=== PATIENT | male | born 1985 | race Caucasian/White ===

== ENCOUNTER 2021-05-29 05:33 | Outpatient (CLI) | payer OTHER ==
[~2021-05-29] VITALS: Ht 182.9 cm; Wt 150.0 kg
[2021-05-29] MEDS ORDERED: MULT-1136 PO (10:48)
[2021-05-29] MEDS ORDERED: PRAV20TA3 PO (10:48)
[2021-05-29] MEDS ORDERED: LISI1TAB29 PO (10:48)
== END 2021-05-29 11:21 | disposition home or self-care (01) ==
LOC: PREOP 05:33
PROVIDERS: ATTEND Surgery
DX: Z01.818 Encounter for other preprocedural examination (principal)

== ENCOUNTER 2021-06-05 10:57 | Day surgery (SDC) | payer OTHER ==
--- NOTE | 2021-05-21 10:07 | HISTORY AND PHYSICAL ---
DATE OF SERVICE: PROCEDURE DATE: 06/05/2021. ATTENDING PRIMARY CARE PHYSICIAN: Earlene Cardenas MD HISTORY OF PRESENT ILLNESS: The patient is a 35-year-old male who is interested in the laparoscopic gastric sleeve resection and meets the medical criteria for bariatric surgery. He reports that he gained the majority of his adult weight in his mid 20s. He has tried a number of diet, exercise and medications with no success. He has tried diet such as slim for life, ketogenic and Slimfast diet. He reports that he did lose some weight. However, he gained this weight back. He has tried exercising in the past such as weight training as well as walking and working with a strainer tender and reports that he would lose some weight; however, would regain his weight back. He reports he has also tried phentermine for approximately 6 months and did lose some weight, but not a significant amount. His medical comorbidities related to obesity include hypertension and hypercholesterolemia. PAST MEDICAL HISTORY: Hypertension, hypercholesterolemia. PAST SURGICAL HISTORY: Tonsillectomy, vasectomy in 2019. ALLERGIES: No known drug allergies. MEDICATIONS: Lisinopril/hydrochlorothiazide 20/12.5 daily, pravastatin 40 mg daily. SOCIAL HISTORY: Negative for tobacco smoke. Rare for alcohol. FAMILY HISTORY: Father, diabetes, myocardial infarction. Mother, diabetes. Paternal grandfather, myocardial infarction. VITAL SIGNS: Blood pressure is 150/90. Current weight is 358.0 pounds at 6 feet 0 inches with a body mass index of 48.5. REVIEW OF SYSTEMS: This is a well-nourished, obese male in no acute distress. He is not experiencing any shortness of breath or difficulty breathing. No chest pain, palpitations or diaphoresis. No nausea, vomiting. No abdominal pain. No diarrhea or constipation. No red blood per rectum. No dark tarry stools. No fever or chills. No recent inadvertent weight loss. All other review of systems negative. PHYSICAL EXAMINATION: CHEST: Clear. Good breath sounds bilaterally. HEART: Regular, no murmurs. EXTREMITIES: No lower extremity edema. Negative Homans sign. HEENT: No scleral icterus. NECK: No cervical lymphadenopathy. ABDOMEN: Soft, nontender, nondistended. SKIN: Warm, dry and pink. NEUROLOGIC: Awake, alert and oriented x3. ASSESSMENT AND PLAN: A 35-year-old male who is in our surgical weight loss program and is interested in the laparoscopic gastric sleeve resection and does meet the medical criteria for bariatric surgery. His medical comorbidities related to obesity include hypertension and hypercholesterolemia. At this time, we will proceed with the necessary testing and evaluations including one time nutrition and psychology evaluation as well as overnight oximetry test, an upper GI contrast study to check for any hiatal hernia as well as clearance from his primary care physician. Once all of these tests and evaluations are completed, we will then proceed with scheduling him for a laparoscopic gastric sleeve resection. The risks and benefits of the procedure as well as the procedure and home care instructions as well as pre and postoperative diet were explained to the patient. The patient verbalized understanding of instructions and agrees to this plan. Job ID: [id number] DocumentID: [id number] Dictated Date: 05/21/2021 09:45:43 Ct Scan Tech Date: 05/21/2021 10:07:02 Dictated By: MARYANN AUSTIN APRN
[~2021-06-05] VITALS: Ht 182.9 cm; Wt 150.0 kg
[2021-06-05] VITALS (9 sets, daily range): BP systolic 130–167; BP diastolic 81–98
[~2021-06-05 10:57] MED LIST: LISI1TAB29 PO; MULT-1136 PO; PRAV20TA3 PO
--- NOTE | 2021-06-05 11:22 | Progress Note-Pre Operative ---
Pre-Operative Progress Note H&P Reviewed The H&P was reviewed, patient examined and no changes noted. Date Seen by Provider: Jun 05, 2021 Time Seen by Provider: 11:20 Date H&P Reviewed: Jun 05, 2021 Time H&P Reviewed: 11:15 Pre-Operative Diagnosis: Morbid obesity, hypertension, hypercholesterolemia MARYANN AUSTIN APRN Jun 05, 2021 11:22
[2021-06-05] MEDS ORDERED: LISI10TA25 PO (11:24)
--- NOTE | 2021-06-05 11:24 | Discharge Inst-Surgical ---
D/C Lap Instructions-KIDO Reconcile Patient Problems Problems Reviewed?: Yes New, Converted, or Re-Newed RX: RX on Chart Follow Up Appt in 2 weeks Activity as tolerated No driving for 24 hours No driving while on pain medications Incentive Spirometry use every 2 hours while awake Clear liquid diet Symptoms to Report: Fever over 101 degree F, Nausea/Vomiting Infection Signs and Symptoms to report: Increased redness, Foul odor of wound, Increased drainage Bathing instructions: May shower Operative Area Clean/Dry; Keep incision clean/dry If any problems/questions: Contact your physician or go to Emergency Room MARYANN AUSTIN APRN Jun 05, 2021 11:24
[2021-06-05] MEDS ORDERED: LIDOCAINE/EPI 1%-1:200,000 (XYLOCAINE) 30 ML VIAL ONE (11:28)
[2021-06-05] MEDS ORDERED: ceFAZolin 2 GM IV Premixed 50 ML ONE (11:38)
[2021-06-05] MEDS: LACTATED RINGERS 1,000 ML IV PRN ×2 (11:45→14:57)
[2021-06-05 12:16] LABS: BASOPHILS % (AUTO) 0 % (0-10); EOSINOPHILS # (AUTO) 0.1 10^3/uL (0.0-0.3); EOSINOPHILS % (AUTO) 1 % (0-10); HEMATOCRIT 48 % (40-54); HEMOGLOBIN 16.2 g/dL (13.3-17.7); LYMPHOCYTES # (AUTO) 2.4 10^3/uL (1.0-4.0); LYMPHOCYTES % (AUTO) 32 % (12-44); MEAN CORPUSCULAR HEMOGLOBIN 28 pg (25-34); MEAN CORPUSCULAR HGB CONC 34 g/dL (32-36); MEAN CORPUSCULAR VOLUME 84 fL (80-99); MEAN PLATELET VOLUME 10.2 fL (9.0-12.2); MONOCYTES # (AUTO) 0.7 10^3/uL (0.0-1.0); MONOCYTES % (AUTO) 9 % (0-12); NEUTROPHILS # (AUTO) 4.3 10^3/uL (1.8-7.8); NEUTROPHILS % (AUTO) 57 % (42-75); PLATELET COUNT 270 10^3/uL (130-400); WHITE BLOOD COUNT 7.4 10^3/uL (4.3-11.0)
[2021-06-05] MEDS ORDERED: fentaNYL INJ 100 MCG/2 ML AMP ONE ×2 (12:26→13:31)
[2021-06-05] MEDS ORDERED: LIDOCAINE PF 2% 5 ML (XYLOCAINE) VIAL ONE (12:26)
[2021-06-05] MEDS ORDERED: ROCURONIUM 10 MG/ML 5 ML SYRINGE IV ONE ×2 (12:26→13:35)
[2021-06-05] MEDS ORDERED: SEVOFLURANE (ULTANE) 15 ML INHAL SOLN ONE ×2 (12:26→14:12)
[2021-06-05] MEDS ORDERED: proPOfol 200 MG/20 ML (DIPRIVAN) VIAL IV ONE (12:26)
[2021-06-05] MEDS ORDERED: ONDANSETRON 4 MG/2 ML (SDV) Z0FRAN ONE (12:26)
[2021-06-05] MEDS ORDERED: MIDAZOLAM 2 MG/2 ML (VERSED) VIAL ONE (12:27)
[2021-06-05] MEDS ORDERED: ONDANSETRON 4 MG/2 ML (SDV) Z0FRAN IV PRN (12:30)
[2021-06-05] MEDS ORDERED: NALOXONE 0.4 MG/ML 1 ML (NARCAN) VIAL IV PRN (12:30)
[2021-06-05] MEDS ORDERED: LACTATED RINGERS 1,000 ML IV SCH (12:30)
[2021-06-05] MEDS ORDERED: diphenhydrAMINE 50 MG/ML INJ (BENADRYL) IV PRN (12:30)
[2021-06-05] MEDS ORDERED: fentaNYL INJ 1,000 MCG in NS (IVPB) 80 ML IV SCH (12:30)
[2021-06-05] MEDS ORDERED: NS IV 1000 ML 1,000 ML IV SCH (12:30)
[2021-06-05] MEDS ORDERED: METOCLOPRAMIDE INJ 10 MG/2 ML (REGLAN) IV PRN (12:30)
[2021-06-05] MEDS ORDERED: diphenhydrAMINE 50 MG/ML INJ (BENADRYL) IVP PRN (12:30)
[2021-06-05] MEDS ORDERED: ceFAZolin 2 GM IV Premixed 50 ML IV ONE (12:45)
[2021-06-05] MEDS: ceFAZolin 2 GM IV Premixed 50 ML IV SCH ×2 (12:48→20:26)
[2021-06-05] MEDS ORDERED: SUGAMMADEX 500 MG/5 ML VIAL (BRIDION) IV ONE (14:20)
[2021-06-05] MEDS ORDERED: morphine INJ 10 MG/ML 1ML (SYR OR VIAL) ONE (14:50)
[2021-06-05] MEDS ORDERED: morphine INJ 10 MG/ML 1ML (SYR OR VIAL) IVP ONE (15:00)
[2021-06-05] MEDS ORDERED: ONDANSETRON 4 MG/2 ML (SDV) Z0FRAN IVP PRN (15:00)
[2021-06-05] MEDS ORDERED: MEPERIDINE (DEMEROL) INJ 50 MG/ML IVP ONE (15:00)
[2021-06-05] MEDS ORDERED: HYDROmorphone 2 MG/ML VIAL (DILAUDID) IV ONE (15:00)
[2021-06-05] MEDS ORDERED: fentaNYL INJ 100 MCG/2 ML AMP IVP ONE (15:00)
--- NOTE | 2021-06-05 15:37 | Progress Note-Post Operative ---
Post-Operative Progess Note Surgeon (s)/Crossbar Switch Adjuster (s) Surgeon MANJU GARCIA MD Crossbar Switch Adjuster: malathi tran PARTS COUNTER REPRESENTATIVE Pre-Operative Diagnosis Morbid obesity, hypertension, hypercholesterolemia Post-Operative Diagnosis same Procedure & Operative Findings Date of Procedure 06/05/21 Procedure Performed/Findings laparoscopic gastric sleeve resection. Anesthesia Type get Estimated Blood Loss Estimated blood loss (mL): minimal Specimens/Packing Specimens Removed stomach MANJU GARCIA MD Jun 05, 2021 15:37
[2021-06-05] MEDS ORDERED: NS IV 1000 ML 1,000 ML ONE (16:07)
[2021-06-05] MEDS: NS IV 1000 ML 1,000 ML IV SCH ×2 (17:06→23:23)
[2021-06-05] MEDS: METOCLOPRAMIDE INJ 10 MG/2 ML (REGLAN) IVP SCH ×2 (17:18→23:22)
[2021-06-05] MEDS: ONDANSETRON 4 MG/2 ML (SDV) Z0FRAN IVP SCH ×2 (17:18→23:22)
[2021-06-05] MEDS: metroNIDAZOLE 500MG/100ML IVPB 100 ML IV SCH ×2 (17:18→23:23)
[2021-06-05] MEDS: HYDROcodone/APAP 7.5MG-325 MG/15 ML (LORTAB) UDC PO PRN ×2 (17:56→22:27)
[2021-06-05] MEDS: ENOXAPARIN 40 MG/0.4 ML (LOVENOX) SYR SC SCH (20:27)
--- NOTE | 2021-06-05 21:31 | OPERATIVE REPORT ---
DATE OF SERVICE: 06/05/2021 ATTENDING PRIMARY CARE PHYSICIAN: Earlene Cardenas MD PREOPERATIVE DIAGNOSES: Morbid obesity, hypertension, hypercholesterolemia. POSTOPERATIVE DIAGNOSES: Morbid obesity, hypertension, hypercholesterolemia. PROCEDURE: Laparoscopic gastric sleeve resection. SURGEON: Manju Garcia MD SUPERVISOR TRAVEL INFORMATION CENTER: Theron Wing APRN. ANESTHESIA: General endotracheal. ESTIMATED BLOOD LOSS: Minimal. FINDINGS: Normal appearing gallbladder, thick mesentery. DISPOSITION: The patient tolerated the procedure well. INDICATIONS: The patient is a 35-year-old male who is in our surgical weight loss program for the laparoscopic gastric sleeve resection meets medical criteria for bariatric surgery. He reports gaining the majority of his adult weight in his mid 20s. He has tried a number of diet and exercise attempts and medications with no success. He has tried diets including Slimfast, ketogenic, Atkins as well as Slimfast and states that he was able to lose some weight; however, not significant. He has tried exercise regimens including resistance weight training, walking, working with a research dietitian and again would lose some weight; however, would regain the weight back. He has also tried phentermine for approximately 6 months and again would lose some weight; however, nothing significant. His medical comorbidities related to his obesity include hypertension and hypercholesterolemia. DESCRIPTION OF PROCEDURE: The patient was brought to the operating room, laid supine on the table. After adequate IV pain and sedative medications and general endotracheal intubation, the abdomen was prepped and draped in standard surgical fashion. A 0.5% Marcaine with epinephrine was then used to anesthetize the overlying skin in the left upper abdominal quadrant and transverse skin incision made using a 15 blade. An 0 silk suture was applied to the medial aspect incision for retraction and a Veress needle inserted with a low opening pressure of 0 mmHg and the abdomen was insufflated to 15 mmHg pressure. The Veress needle removed and a 5 mm XL trocar placed followed by a 5 mm 45-degree angle laparoscope visualizing the peritoneal cavity. A 4-quadrant abdominal exploration was performed. No significant hepatomegaly, gallbladder appeared normal. Thick mesentery. Under direct visualization, we then proceeded to place a midabdominal left midline 10 mm port after the skin and peritoneal lining were anesthetized using 0.5% Marcaine with epinephrine and a transverse skin incision was made using a 15 blade. In a similar manner, a midabdominal right of midline 15 mm port was placed followed by a right upper abdominal quadrant 5 mm port. The epigastric region was then anesthetized using 0.5% Marcaine with epinephrine and a transverse skin incision made using 11 blade. A tract was then created using a trocar to a 5 mm port and through this opening, a medium sized Nathansen liver retractor was placed and the fundus of the gallbladder was then retracted anteriorly and superiorly. The patient was then placed in steep reverse Trendelenburg position. We then measured 6 cm from the pylorus along the greater curvature and marked this with a marking pen. The gastrocolic ligament next to the stomach was then opened using a Sonicision. We then proceeded with caudal dissection until we were approximately 2 cm below our marking using the Sonicision with visualization of good hemostasis. We then proceeded cephalad taking down the short gastric vessels as well as the angle of His connective tissue fibers as well as the posterior stomach behind this until the left temo of the diaphragm was identified with visualization of good hemostasis. A 36-Afghan ViSiGi was then placed in the stomach and directed into the pylorus under direct visualization. Using this as our staple line guide, we then proceeded with our gastric sleeve resection starting with a JERRY 45 mm polyglycolic acid black load followed by three 60 mm black loads followed by a 60 mm purple load leaving approximately 2 cm next to the gastroesophageal junction and completing our gastric sleeve resection. The staple line corners were then clipped with 5 mm clips. A leak test was then performed with no leak identified Vistaseal fibrin glue. Fibrin glue was then placed onto the staple line and the omentum placed over the staple line. The stomach was removed through the 15 mm port site. The liver retractor removed and the fascia and peritoneum to the 15 and 10 mm port sites were then closed under direct visualization using a Dean-Harley device and 0 Vicryl suture. The abdomen was then desufflated and the remaining ports removed. All skin incisions were closed using 4-0 Monocryl running subcuticular sutures. Wounds were then cleaned and covered with Dermabond. The patient tolerated the procedure well. We will admit him 23-hour observation and proceed with pain control with a IN PROCESS INSPECTOR pump. We will also proceed with DVT prophylaxis with early ambulation, calf SCDs as well as Lovenox injections. Tomorrow morning, we will start a phase 1 clear liquid diet and once he is able to tolerate 60 mL every 30 minutes, has adequate pain control with oral pain medications, ambulating well, we will discharge him home where he will be instructed to continue with a phase 1 clear liquid diet for the next 2 weeks. Job ID: [id number] DocumentID: [id number] Dictated Date: 06/05/2021 14:34:16 Deblocker Date: 06/05/2021 21:30:44 Dictated By: MANJU GARCIA MD
[2021-06-05] MEDS: RT-ALBUTEROL SULF 2.5 MG/3 ML PRE-MIX VIAL INH SCH (23:16)
[2021-06-06 00:03] VITALS: BP 142/81
[2021-06-06] MEDS: ceFAZolin 2 GM IV Premixed 50 ML IV SCH (03:25)
[2021-06-06] MEDS: HYDROcodone/APAP 7.5MG-325 MG/15 ML (LORTAB) UDC PO PRN ×4 (03:25→15:25)
[2021-06-06 04:30] VITALS: BP 136/74
[2021-06-06] MEDS: NS IV 1000 ML 1,000 ML IV SCH ×2 (05:57→12:13)
[2021-06-06] MEDS: ONDANSETRON 4 MG/2 ML (SDV) Z0FRAN IVP SCH ×2 (05:57→12:12)
[2021-06-06] MEDS: METOCLOPRAMIDE INJ 10 MG/2 ML (REGLAN) IVP SCH ×2 (05:57→12:12)
[2021-06-06 06:14] LABS: HEMATOCRIT 39 % (40-54); HEMOGLOBIN 13.2 g/dL (13.3-17.7); MEAN CORPUSCULAR HEMOGLOBIN 29 pg (25-34); MEAN CORPUSCULAR HGB CONC 34 g/dL (32-36); MEAN CORPUSCULAR VOLUME 85 fL (80-99); MEAN PLATELET VOLUME 9.8 fL (9.0-12.2); PLATELET COUNT 200 10^3/uL (130-400); WHITE BLOOD COUNT 11.8 10^3/uL (4.3-11.0)
[2021-06-06] MEDS: RT-ALBUTEROL SULF 2.5 MG/3 ML PRE-MIX VIAL INH SCH ×2 (06:56→15:38)
[2021-06-06 08:00] VITALS: BP 144/77
[2021-06-06] MEDS: metroNIDAZOLE 500MG/100ML IVPB 100 ML IV SCH (08:35)
[2021-06-06] MEDS: ENOXAPARIN 40 MG/0.4 ML (LOVENOX) SYR SC SCH (08:38)
[2021-06-06] MEDS ORDERED: PANTOPRAZOLE 40 MG (PROTONIX) VIAL IV SCH (09:00)
[2021-06-06] MEDS ORDERED: PANTOPRAZOLE 40 MG (PROTONIX) TAB PO SCH (09:00)
[2021-06-06] MEDS ORDERED: SENNA W/DOCUSATE (SENOKOT S) TABLET PO SCH (09:00)
--- NOTE | 2021-06-06 10:34 | Anesthesia-General Post-Op ---
General Patient Condition Mental Status/LOC: Same as Preop Cardiovascular: Satisfactory Nausea/Vomiting: Absent Respiratory: Satisfactory Pain: Controlled Complications: Absent Post Op Complications Complications None Follow Up Care/Instructions Patient Instructions None needed. Anesthesia/Patient Condition Patient Condition Patient is doing well, no complaints, stable vital signs, no apparent adverse anesthesia problems. No complications reported per nursing. ARMANDO LYON CRNA Jun 06, 2021 10:34
--- NOTE | 2021-06-06 11:00 | Progress Note ---
Subjective Date Seen by a Provider: Jun 06, 2021 Time Seen by a Provider: 10:30 Subjective/Events-last exam doing well. pain controlled with PO pain med. ambulating well. no fever/chills. Objective Exam Vital Signs Date Time Temp Pulse Resp B/P (MAP) Pulse Ox O2 Delivery O2 Flow Rate FiO2 06/06/21 08:00 Room Air 06/06/21 08:00 36.5 95 22 144/77 (99) 99 06/06/21 07:30 20 06/06/21 06:56 97 Room Air 06/06/21 04:30 36.4 70 18 136/74 (94) 96 Room Air 06/06/21 02:14 95 Room Air 06/06/21 00:03 36.6 73 16 142/81 (101) 97 Room Air 06/05/21 21:00 20 06/05/21 20:00 36.6 73 16 142/81 (101) 97 06/05/21 17:00 36.3 86 20 159/84 (109) 97 Room Air 06/05/21 15:50 Room Air 06/05/21 15:50 98 Room Air 06/05/21 15:40 37 16 167/91 (116) 98 Room Air 06/05/21 15:30 16 159/82 (107) 97 Room Air 06/05/21 15:30 Room Air 06/05/21 15:20 16 159/87 (111) 97 Room Air 06/05/21 15:15 Room Air 06/05/21 15:10 18 139/84 (102) 99 OxyMask 3 06/05/21 15:00 19 136/98 (111) 100 OxyMask 6 06/05/21 15:00 OxyMask 6 06/05/21 14:47 OxyMask 10 06/05/21 14:47 36.5 16 162/93 (116) 96 OxyMask 10 06/05/21 11:45 36.2 86 18 130/90 (103) 96 Room Air I & O 06/06/21 07:00 Intake Total 250 ml Output Total 1350 ml Balance -1100 ml Capillary Refill : General Appearance: No Apparent Distress HEENT: PERRL/EOMI Neck: Full Range of Motion Respiratory: Chest Non Tender, Lungs Clear, Normal Breath Sounds Cardiovascular: Regular Rate, Rhythm Gastrointestinal: normal bowel sounds, soft, tenderness Extremity: Normal Capillary Refill Neurologic/Psychiatric: Alert, Oriented x3 Skin: Normal Color Lymphatic: No Adenopathy Results Lab Laboratory Tests 06/05/21 11:32: White Blood Count 7.4, Red Blood Count 5.75H, Hemoglobin 16.2, Hematocrit 48, Mean Corpuscular Volume 84, Mean Corpuscular Hemoglobin 28, Mean Corpuscular Hemoglobin Concent 34, Red Cell Distribution Width 12.2, Platelet Count 270, Mean Platelet Volume 10.2, Immature Granulocyte % (Auto) 0, Neutrophils (%) (Auto) 57, Lymphocytes (%) (Auto) 32, Monocytes (%) (Auto) 9, Eosinophils (%) (Auto) 1, Basophils (%) (Auto) 0, Neutrophils # (Auto) 4.3, Lymphocytes # (Auto) 2.4, Monocytes # (Auto) 0.7, Eosinophils # (Auto) 0.1, Basophils # (Auto) 0.0, Immature Granulocyte # (Auto) 0.0 06/06/21 06:05: White Blood Count 11.8H, Red Blood Count 4.60, Hemoglobin 13.2L, Hematocrit 39L, Mean Corpuscular Volume 85, Mean Corpuscular Hemoglobin 29, Mean Corpuscular Hemoglobin Concent 34, Red Cell Distribution Width 12.5, Platelet Count 200, Mean Platelet Volume 9.8 Assessment/Plan Assessment/Plan Assess & Plan/Chief Complaint s/p laparoscopic gastric sleeve resection. ambulate. phase 1 clear liquid diet. PO pain meds. home soon. continue phase 1 clear liquid diet next 2 weeks. MANJU GARCIA MD Jun 06, 2021 11:00
[2021-06-06] MEDS ORDERED: METOCLOPRAMIDE INJ 10 MG/2 ML (REGLAN) IVP PRN (12:30)
[2021-06-06] MEDS ORDERED: ONDANSETRON 4 MG/2 ML (SDV) Z0FRAN IVP PRN (12:30)
[2021-06-06 15:50] VITALS: BP 136/88
[2021-06-06 16:50] VITALS: BP 136/88
[2021-06-06 16:52] VITALS: BP 136/88
== END 2021-06-06 16:55 | disposition home or self-care (01) ==
LOC: SDC 10:57 → 4TH 15:50 → SDC 06-06 16:55
PROVIDERS: ATTEND Surgery
DX: E66.01 Morbid (severe) obesity due to excess calories (principal); I10 Essential (primary) hypertension; E78.00 Pure hypercholesterolemia, unspecified; Z68.41 Body mass index [BMI] 40.0-44.9, adult; Z79.899 Other long term (current) drug therapy
CPT/HCPCS: 36415; 85025; 85027; 87081; 94640; 94760

== ENCOUNTER → 2022-02-25 | Outpatient (CLI) | payer OTHER ==
[~2022-02-25] MED LIST changes: +CIPR250S3 PO; +HYDR-3817 PO; +LISI10TA25 PO; -LISI1TAB29 PO; +LISI1TAB44 PO; +METR-145 PO; +PANT40TA52 PO; +TMSL.4C PO
--- NOTE | 2022-02-25 14:32 | Diagnostic Imaging Report ---
Indication: History of right-sided calculus. COMPARISON: CT from earlier same day FINDINGS: 2 frontal radiograph views the abdomen were obtained. Patient has known duplicated right renal collecting system. There is no contrast seen within the upper pole moiety. There does however appear to be retained contrast blush. Known distal right ureteral calculus is inconspicuous, as expected. Small bowel loops are nondistended. There is no large collection of free intraperitoneal air. No unexpected radiopaque foreign bodies are seen. IMPRESSION: 1. Findings consistent with known upper pole obstruction of the right renal collecting system. Patient's known right distal ureteral calculus is inconspicuous. Dictated by: Dictated on workstation # [id number]
== END ==
LOC: RAD 13:09
PROVIDERS: ATTEND Urology
DX: N20.2 Calculus of kidney with calculus of ureter (principal)
CPT/HCPCS: 74018

== ENCOUNTER → 2022-02-25 | Outpatient (CLI) | payer OTHER ==
[~2022-02-25] MED LIST changes: +CATHETER FLUSH 10 ML SYR IV PRN; +HOLD METFORMIN - RECEIVED CONTRAST 20 ML VIAL IV SCH; +IOHEXOL 350 MG/ML 100 ML (OMNIPAQUE 350) VIAL IV ONE; +NS 100 ML (IVPB) BAG IV ONE
[2022-02-25 10:52] LABS: HEMATOCRIT 41 % (40-54); HEMOGLOBIN 14.1 g/dL (13.3-17.7); MEAN CORPUSCULAR HEMOGLOBIN 29 pg (25-34); MEAN CORPUSCULAR HGB CONC 35 g/dL (32-36); MEAN CORPUSCULAR VOLUME 84 fL (80-99); MEAN PLATELET VOLUME 9.4 fL (9.0-12.2); PLATELET COUNT 245 10^3/uL (130-400); WHITE BLOOD COUNT 11.9 10^3/uL (4.3-11.0)
[2022-02-25 11:09] LABS: ALBUMIN 4.5 GM/DL (3.2-4.5)
[2022-02-25 11:10] LABS: POTASSIUM 3.6 MMOL/L (3.6-5.0)
[2022-02-25 11:11] LABS: CALCIUM 9.5 MG/DL (8.5-10.1)
[2022-02-25 11:12] LABS: TOTAL PROTEIN 7.6 GM/DL (6.4-8.2)
[2022-02-25 11:14] LABS: BILIRUBIN,TOTAL 0.9 MG/DL (0.1-1.0)
[2022-02-25 11:16] LABS: CREATININE SERUM 0.83 MG/DL (0.60-1.30)
--- NOTE | 2022-02-25 11:37 | Diagnostic Imaging Report ---
PROCEDURE: CT abdomen and pelvis with contrast, rule out appendicitis. TECHNIQUE: Multiple contiguous axial images were obtained through the abdomen and pelvis after the administration of intravenous contrast. All CT scans use one or more of the following dose optimizing techniques: automated exposure control, MA and/or KvP adjustment based on patient size and exam type or iterative reconstruction. INDICATION: Right flank pain There are no prior studies available for comparison. The images through the low pelvis show there is a 3.7 mm calculus in the distal right ureter approximately 1 cm from the ureterovesical junction. The ureter proximal to the calculus is dilated and there is distention of the upper pole moiety as well. This appearance would be consistent with obstruction right collecting system due to the aforementioned calculus. There is no evidence for obstruction of the lower pole moiety. However there is a 4.1 mm calculus in the inferior pole of the right kidney. There are also 3 smaller (3 mm or less) non-obstructive calculi within the left collecting system. There is no evidence for obstruction of the left collecting system. The tip of the appendix is at the upper limits of normal measuring approximately 8 mm. The appendix is also filled with dense material as well as a small amount of gas. There is no distortion of the periappendiceal fat to suggest acute appendicitis. The possibility of early appendicitis should still be considered. There is no acute abnormality abdomen or pelvis noted otherwise. There are postsurgical changes consistent with prior gastric bypass procedure. The lung bases are clear. The bone windows show no evidence for a fracture or for a destructive lesion. IMPRESSION: 1. 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 There are also nonobstructive calculi involving both kidneys. 2. The tip of the appendix is at the upper limits of normal but there is no distortion of the periappendiceal fat to suggest acute appendicitis. Even so, clinical follow-up regarding early appendicitis should be considered. There is no acute abnormality of the abdomen and pelvis noted otherwise. 3. These results were called to Theron at Dr. Galdamez's office at the time of dictation. Dictated by: Dictated on workstation # [id number]
== END ==
LOC: RAD 10:38
PROVIDERS: ATTEND Surgery
DX: N20.2 Calculus of kidney with calculus of ureter (principal)
CPT/HCPCS: 36415; 74177; 80053; 85027

== ENCOUNTER 2022-02-26 05:34 | Outpatient (CLI) | payer OTHER ==
[~2022-02-26] VITALS: Ht 182.9 cm; Wt 110.9 kg
[~2022-02-26 05:34] MED LIST changes: -CATHETER FLUSH 10 ML SYR IV PRN; -CIPR250S3 PO; -HOLD METFORMIN - RECEIVED CONTRAST 20 ML VIAL IV SCH; -HYDR-3817 PO; -IOHEXOL 350 MG/ML 100 ML (OMNIPAQUE 350) VIAL IV ONE; -METR-145 PO; -NS 100 ML (IVPB) BAG IV ONE; -PANT40TA52 PO; -TMSL.4C PO
[2022-02-26] MEDS ORDERED: CIPR250S3 PO (09:59)
[2022-02-26] MEDS ORDERED: TMSL.4C PO (09:59)
[2022-02-26] MEDS ORDERED: HYDR-3817 PO (09:59)
[2022-02-26] MEDS ORDERED: METR-145 PO (09:59)
[2022-02-26] MEDS ORDERED: PANT40TA52 PO (10:01)
== END 2022-02-26 10:11 | disposition home or self-care (01) ==
LOC: PREOP 05:34
PROVIDERS: ATTEND Urology
DX: Z01.818 Encounter for other preprocedural examination (principal)

== ENCOUNTER 2022-03-03 08:08 | Day surgery (SDC) | payer OTHER ==
[~2022-03-03] VITALS: Ht 182 cm; Wt 110.9 kg
[2022-03-03] VITALS (9 sets, daily range): BP systolic 104–135; BP diastolic 61–91
[~2022-03-03 08:08] MED LIST changes: +CIPR250S3 PO; +HYDR-3817 PO; +METR-145 PO; +PANT40TA52 PO; +TMSL.4C PO
[2022-03-03] MEDS ORDERED: cefTRIAXone 1 GM PRE-MIX 50 ML IV ONE (08:30)
--- NOTE | 2022-03-03 08:37 | Progress Note-Pre Operative ---
Pre-Operative Progress Note H&P Reviewed The H&P was reviewed, patient examined and no changes noted. Date Seen by Provider: March 03, 2022 Time Seen by Provider: 08:36 Date H&P Reviewed: March 03, 2022 Time H&P Reviewed: 08:36 Pre-Operative Diagnosis: RT DISTAL URETERAL STONE IN DUPLICATED SYSTEM BETO MICHAELS MD March 03, 2022 08:37
[2022-03-03 08:59] LABS: POTASSIUM 4.1 MMOL/L (3.6-5.0)
[2022-03-03 09:00] LABS: CALCIUM 9.2 MG/DL (8.5-10.1)
[2022-03-03 09:04] LABS: PHOSPHORUS 2.4 MG/DL (2.3-4.7)
[2022-03-03 09:05] LABS: CREATININE SERUM 0.81 MG/DL (0.60-1.30)
[2022-03-03 09:07] LABS: URIC ACID 5.5 MG/DL (2.6-7.2)
[2022-03-03] MEDS: LACTATED RINGERS 1,000 ML IV PRN ×2 (09:30→12:17)
--- NOTE | 2022-03-03 09:34 | Diagnostic Imaging Report ---
INDICATION: Preop ESWL. COMPARISON: Correlation is made with an abdominal/pelvic CT dated 02/25/2022. FINDINGS: A faint calcific opacity of 2.4 mm projects over the mid to lower right hemisacrum corresponding to the level of a distal right ureteral stone present on the earlier CT. A left pelvic phlebolith lateral to the course of the distal left ureter is unchanged and incidental. The intrarenal stones present at earlier CT are not discernible at this modality. IMPRESSION: A faint 2.4 mm distal right ureteral stone projects in unchanged alignment from the earlier CT. Dictated by: Dictated on workstation # [id number]
--- NOTE | 2022-03-03 11:37 | Progress Note-Post Operative ---
Post-Operative Progess Note Surgeon (s)/Flying I Instructor (s) Surgeon BETO MICHAELS MD Flying I Instructor: NONE Pre-Operative Diagnosis RT DISTAL URETERAL STONE IN DUPLICATED SYSTEM Post-Operative Diagnosis SAME (COMPLETE DUPLICATION) Procedure & Operative Findings Date of Procedure 03/03/22 Procedure Performed/Findings CYSTOSCOPY, RT RETROGRADE UROGRAM, ATTEMPTED URETEROSCOPY, ATTEMPTED STENT Anesthesia Type GENERAL Estimated Blood Loss Estimated blood loss (mL): NONE Specimens/Packing Specimens Removed NONE Packing: NONE BETO MICHAELS MD March 03, 2022 11:37
--- NOTE | 2022-03-03 11:38 | Discharge Inst-Urology ---
Discharge Inst-Urology Reconcile Patient Problems Problems Reviewed?: Yes Final Diagnosis RT DISTAL URETERAL STONE IN A DUPLICATED SYSTEM Patient Instructions/Follow Up Plan/Assessment/Instructions Please make appointment to been seen in office in 3 weeks. Increase oral fluids for 48 hours and then as needed. Diet and Activity as tolerated. If questions or concerns contact your physician Or seek help at emergency department. BETO MICHAELS MD March 03, 2022 11:38
[2022-03-03] MEDS ORDERED: proPOfol 200 MG/20 ML (DIPRIVAN) VIAL IV ONE (12:07)
[2022-03-03] MEDS ORDERED: LIDOCAINE PF 2% 5 ML (XYLOCAINE) VIAL ONE (12:07)
[2022-03-03] MEDS ORDERED: fentaNYL INJ 100 MCG/2 ML AMP ONE (12:07)
[2022-03-03] MEDS ORDERED: SEVOFLURANE (ULTANE) 15 ML INHAL SOLN ONE ×2 (12:07→13:15)
[2022-03-03] MEDS ORDERED: ONDANSETRON 4 MG/2 ML (SDV) Z0FRAN ONE (12:07)
[2022-03-03] MEDS ORDERED: MIDAZOLAM 2 MG/2 ML (VERSED) VIAL ONE (12:08)
[2022-03-03] MEDS ORDERED: FUROSEMIDE 40 MG/4 ML INJ (LASIX) ONE (13:15)
[2022-03-03] MEDS ORDERED: KETOROLAC 30 MG/ML VIAL ONE (13:15)
[2022-03-03] MEDS ORDERED: morphine INJ 10 MG/ML 1ML (SYR OR VIAL) IVP ONE (13:30)
[2022-03-03] MEDS ORDERED: HYDROmorphone 2 MG/ML VIAL (DILAUDID) IV ONE (13:30)
[2022-03-03] MEDS ORDERED: PROMETHAZINE INJ 25 MG/ML (PHENERGAN) AMP IVP ONE (13:30)
[2022-03-03] MEDS ORDERED: ONDANSETRON 4 MG/2 ML (SDV) Z0FRAN IVP PRN (13:30)
[2022-03-03] MEDS ORDERED: TMSL.4C PO (14:00)
[2022-03-03] MEDS ORDERED: KETO10TA PO (14:00)
[2022-03-03] MEDS ORDERED: NITR-65 PO (14:00)
[2022-03-03] MEDS ORDERED: PHEN-640 PO (14:00)
--- NOTE | 2022-03-03 17:46 | OPERATIVE REPORT ---
DATE OF SERVICE: 03/03/2022 PREOPERATIVE DIAGNOSIS: Right distal ureteral stone and duplicated system. POSTOPERATIVE DIAGNOSIS: Right distal ureteral stone and duplicated system, "complete duplication". OPERATIONS PERFORMED: Cystoscopy, right retrograde urogram, attempted ureteroscopy, and attempted stent. SURGEON: Kristian Michaels MD. ANESTHESIA: General. COMPLICATIONS: None. DESCRIPTION OF PROCEDURE: Under satisfactory general anesthesia, the patient in lithotomy position, genitalia were prepped and draped in the usual sterile fashion. Cystoscope was introduced under vision. The anterior urethra was normal. The prostate was nonobstructing. The bladder neck was open. The bladder was inspected. It was normal except for two ureteric orifices on the right side. I injected contrast in each ureter to delineate which one goes with the upper moiety and found it to be the higher and slightly more medial. Injection of the contrast failed to reveal any filling defect and had complete emptying of the system pretty fast. I attempted to do a semirigid ureteroscopy, was unsuccessful because the size of the ureter was probably smaller than the scope. This continued further attempted to pass a stent again unsuccessful, so I discontinued further attempt in order not to cause any harm. I performed again a retrograde urogram, which revealed no harm and complete integrity of the system noted again, no filling defect and a decreased size of the ureter compared to the size on the CT and complete and fast emptying of the system again. Possibility either, I flushed the stone back into the kidney or the patient had passed a stone, but did not retrieved it, which would be the more possible because of the decrease in the dilatation of the ureter compared to the CAT scan study. There was excellent efflux from both right ureteral orifices, so I terminated the procedure, emptied the bladder, and removed the cystoscope. The patient tolerated the procedure and anesthesia well and was sent to recovery room in a stable condition. PLAN: I told his that if he comes back with severe pain, he does have more stones anyway, which need to be worked up for prevention. We will need to send him to a place, where they have a flexible ureteroscopy, which we do not carry. Job ID: [id number] DocumentID: [id number] Dictated Date: 03/03/2022 13:31:05 Gis Manager Date: 03/03/2022 17:45:38 Dictated By: KRISTIAN MICHAELS MD
--- NOTE | 2022-03-04 08:48 | Anesthesia-General Post-Op ---
General Patient Condition Mental Status/LOC: Same as Preop Cardiovascular: Satisfactory Nausea/Vomiting: Absent Respiratory: Satisfactory Pain: Controlled Complications: Absent Post Op Complications Complications None Follow Up Care/Instructions Patient Instructions None needed. Anesthesia/Patient Condition Patient Condition Patient is doing well, no complaints, stable vital signs, no apparent adverse anesthesia problems. No complications reported per nursing. GELY ESPINOZA CRNA March 04, 2022 08:48
== END 2022-03-03 15:15 | disposition home or self-care (01) ==
LOC: SDC 08:08
PROVIDERS: ATTEND Urology
DX: N20.1 Calculus of ureter (principal); Q64.8 Other specified congenital malformations of urinary system; K21.9 Gastro-esophageal reflux disease without esophagitis; N40.0 Benign prostatic hyperplasia without lower urinary tract symptoms
CPT/HCPCS: 52005; 74018; 76000; 80048; 83970; 84100; 84550; 87081; C2625; 36415

== ENCOUNTER → 2022-03-24 | Outpatient (CLI) | payer OTHER ==
[~2022-03-24] MED LIST changes: +KETO10TA PO; +NITR-65 PO; +PHEN-640 PO
--- NOTE | 2022-03-24 16:31 | Diagnostic Imaging Report ---
PROCEDURE: CT abdomen and pelvis without contrast. TECHNIQUE: Multiple contiguous axial images were obtained through the abdomen and pelvis without the use of intravenous contrast. Auto Exposure Controls were utilized during the CT exam to meet ALARA standards for radiation dose reduction. INDICATION: Nephrolithiasis. COMPARISON: 02/25/2022. FINDINGS: No focal hepatic, gallbladder, pancreatic, or splenic abnormality is identified. Surgical findings are again seen along the course of the stomach. No adrenal gland abnormality is identified. Duplicated right renal collecting system is again identified. No obvious renal stone is detected. Persistent calcification in the right retroperitoneum measures approximately 0.3 cm in size compatible with distal ureteric stone. There is no focal inflammation or organized fluid collection detected. Prostatic calcifications are again noted and asymmetric on the right. IMPRESSION: 0.3 cm calcification in the right retroperitoneum is stable and is consistent with distal ureteric stone; however, there is no significant residual hydronephrosis within the duplicated right renal collecting system. No new abnormality is identified. Dictated by: Dictated on workstation # [id number]
== END ==
LOC: RAD 16:30
PROVIDERS: ATTEND Urology
DX: N20.0 Calculus of kidney (principal)
CPT/HCPCS: 74176

== ENCOUNTER → 2022-03-29 | Outpatient (CLI) | payer OTHER | LOC: LABNPT 07:51 | PROVIDERS: ATTEND Urology | DX: N20.0 Calculus of kidney (principal) | CPT/HCPCS: 82140; 82340; 82507; 82570; 83735; 83945; 83986; 84105; 84133; 84300; 84392; 84560 ==